=== PATIENT | female | born 1950 | race Caucasian/White ===

== ENCOUNTER 2022-06-13 11:48 | Outpatient (CLI) | payer MEDICARE, BC, SELFPAY ==
[2022-06-13 16:11] LABS: Albumin* 4.2 g/dL (3.3-5.0); Chloride* 103 mmol/L (96-114); Potassium* 4.7 mmol/L (3.6-5.1); Sodium* 136 mmol/L (135-149)
[2022-06-13 16:13] LABS: Carbon Dioxide* 27 mmol/L (20-32); Cholesterol* 193 mg/dL (90-199); Creatinine* 0.6 mg/dL (0.5-1.5); Estimated Glomerular Filt Rate 96 ml/min
[2022-06-13 16:14] LABS: Alanine Aminotransferase* 47 U/L (4-35); Alkaline Phosphatase* 100 U/L (40-150); Aspartate Amino Transferase* 62 U/L (12-35); Bilirubin Total* 0.6 mg/dL (0.1-1.5); Blood Urea Nitrogen* 13 mg/dL (7-30); Calcium* 9.2 mg/dL (8.4-10.6); Glucose* 83 mg/dL (60-115); Total Protein* 7.1 g/dL (6.0-8.3); Triglycerides* 51 mg/dL (40-149)
[2022-06-13 16:15] LABS: HDL Cholesterol* 68 mg/dL (>=50); LDL Cholesterol Calculated 115 mg/dL (<100)
== END 2022-06-13 11:49 | disposition home or self-care (01) ==
PROVIDERS: PCP Nurse Practitioner Family; Visit Provider Nurse Practitioner Family
DX: B35.1 Tinea unguium (principal); Z13.6 Encounter for screening for cardiovascular disorders
CPT/HCPCS: 80053; 80061

== ENCOUNTER 2022-06-19 14:58 | Outpatient (CLI) | payer MEDICARE, SELFPAY ==
--- OUTSIDE RECORDS SUMMARY | 2022-05-17 09:59 | XMS_ITS | Continuity of Care Document ---
:1950 Author Care Team Providers Name Role Phone RUSTY Smiley Primary Care Physician [email or web address] MD Tree Attending Physician Chief Complaint and Reason for Visit Chief Complaint SWOLLEN TONGUE Allergies, Adverse Reactions, Alerts Allergen Type Severity Reaction Last Verified Status Updated Penicillin v Allergy Mild Rash April 25, Yes Active 2021 Pneumococcal Allergy Mild Swollen Arm April 25, Yes Activ e Vaccines 2021 SEASONAL Allergy Mild STUFFY NOSE March 15, No Active 2004 Social History Smoking Status Status Start Date End Date Date of Observat ion Never smoked tobacco April 25 5:22pm (finding) Additional Data Assigned Sex Female Problems Active Problems Medical Problem Onset Date Status Osteopenia October, Active History of polymyalgia rheumatica 2009 Resolv ed History of colon polyps 2010 Resolved Lyme arthritis Active Encounter for screening for Active COVID-19 History of bilateral cataract 2016 Resolved extraction Inactive/Resolved Problems Medical Problem Onset Date Status 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, 2012 Resolved Medications Medication Status Dose Units Route Directions Qty Days Start End Ins tructions Date Date Calcium/Vitam Active 1 EA PO Daily in D Cholecalcifer Active 5000 UNIT PO Daily 100 ol (Vitamin D) 5,000 Unit TAB Loratadine Active 10 MG PO Daily as 100 needed Terbinafine Active 250 MG PO Daily 84 April 11:49am Acetaminophen Disconti 1 TAB PO Q4h Prn February /Hydrocodone nued , , Bitart 2004 2006 (Vicodin Es 11:27am 1:26pm 750/7.5 Mg) 1 Ea TAB Acyclovir Disconti 400 MG PO Twice A Day Juneuar (Zovirax) 400 nued , y Mg TAB 2012 08, 4:46pm 2013 4:19pm Alendronate Disconti 70 MG PO Every 7 12 April Sodium nued Days , 2021 9:29am 3:34pm Alendronate Disconti 70 MG PO Every 7 January Sodium nued Days , 2021 10:56am 9:29am Alendronate Disconti 70 MG PO Every 7 January Sodium nued Days r , 2020 9:17am 10:56a m Alendronate Disconti 70 MG PO Every 7 12 August Sodium nued Days 4th, er 2020, 1:05pm 2020 9:17am Alendronate Disconti 70 MG PO Every 7 04 June Octobe Sodium nued Days 28th, r 2019 11:20am 1:05pm Alendronate Disconti 70 MG PO Every 7 March Sodium nued Days , 2018 3:36pm 11:20a m Alendronate Disconti 70 MG PO Every 7 February Sodium nued Days , 2018 5:45pm 3:36pm Alendronate Disconti 70 MG PO Once Weekly 25 January Sodium nued , (Fosamax) 70 2012 Mg TAB 7:59am Alendronate Disconti 70 MG PO Once Weekly Januaryu a Sodium nued , ry (Fosamax) 70 2011, Mg TAB 11:54am 2012 10:08a m Alendronate Disconti 70 MG PO Once Weekly Jan Patient due Sodium nued r , , for follow up (Fosamax) 2010 apt in Mg TAB 1:17pm 11:54a December m 2010. Alendronate Disconti 70 MG PO Once Weekly November Patient due Sodium nued , er for follow up (Fosamax) 70 2010, apt in Mg TAB 4:pm 2010 1:17pm 2010. Alendronate Disconti 70 MG PO Once Weekly Nov uar Sodium nued r 10th, y (Fosamax) 70 2009 09, Mg TAB 9:17am 2010 4:18pm Alendronate Disconti 70 MG PO Once Weekly August Sodium nued , er (Fosamax) 70 2008 08, Mg TAB 12:35pm 2008 9:17am Alendronate Disconti 70 mg PO Weekly 12 Octobe Sodium nued er r (Fosamax) 10 , , Mg TAB 2007 2007 12:33pm 12:35p m Alendronate Disconti 70 mg PO Weekly 5 Septem Sodium nued er jose (Fosamax) 10 , , Mg TAB 2006 2007 12:51pm 11:21a m Alendronate Disconti Septem Sodium nued jose (Fosamax) 10 , Mg TAB 2006 12:51p m Amoxicillin Disconti 500 MG PO Three Times February nued A Day , , 2004 2006 11:27am 1:26pm Aspirin Disconti 81 MG PO Daily Novemb nued er 2017 1:00pm Azithromycin Disconti 250-5 MG PO Daily April 500 mg x 1 nued 00 , day then 250 2014 2016 mg daily x 4 2:40pm 1:08pm days Azithromycin Disconti 0 PO Daily March DANIEL E 2 TABLETS TOGETHER TODAY, THEN 1 TABLET ONCE DAILY FOR 4 MORE (Zithromax) nued , jose DAYS 250 Mg TAB 2014 01, 10:47am 2013 8:09am Betamethasone Disconti 1 JL TOP Twice A Day mbe D ecemb /Clotrimazole nued r , er (Lotrisone) 2015 11, CRE 5:04pm 2019 2:46pm Cephalexin Disconti 250 MG PO Three Times April Monohydrate nued A Day , jose (Keflex) 250 2006, Mg CAP 11:54am 2006 8:40am Cetirizine Disconti 10 MG PO Daily Novemberua Hcl (Zyrtec) nued , ry 10 Mg TAB 2012, 11:03am 2012 8:59am Ciprofloxacin Disconti 1 TABLET PO Twice A Day Take for 1-3 Hcl nued er ry days for , , infectious 2016 2018 diarrhea. 6:09pm 1:26pm Ciprofloxacin Disconti 500 MG PO Twice A Day March e Take 2x/day for up to 3 days for moderate to severe Hcl (Cipro) nued , , diarrhea . 500 Mg TAB 2014 2014 12:35pm 2:14pm Coenzyme Q10 Disconti 100 MG OR Daily (Ubidecarenon nued er e) (Co Q 10) , 100 Mg CAP 2015 10:42a m Cyclobenzapri Disconti 1 TABLET PO Three Times 22 June No vemb PRN MUSCLE ne Hcl nued A Day , er SPASM (Flexeril) 2009, Mg TAB 3:36pm 2009 1:30pm Diphtheria/Te Disconti 0.5 ML IM Once tanus/Acell nued r , er Pertussis 2009 08, (Adacel) 0.5 1:50pm 2008 Ml INJ 1:51pm Doxycycline Disconti 100 MG PO Daily Februa Be gin two days before your trip, during the trip, and (Monohydrate) nued er ry contin ue for 4 weeks after returning home. , 2016 6:09pm 1:26pm Doxycycline Disconti 100 MG PO Twice A Day 56 Decembe Feb il Monohydrate nued r , 2019 3:31pm 12:58p m Doxycycline Disconti 100 MG PO Daily August Ta ke one pill at the same time daily. Start 2 days before Monohydrate nued , er travel a nd continue for 4 weeks after returning. 2018 11, 12:18pm 2019 2:46pm Fish Oil Disconti 1000 MG PO Daily February nu2020 12:58p m Fluticasone Disconti 2 PUFF NA Daily February Propionate nued , , (Flonase) 50 2004 2006 Mcg/1 [place] 11:27am 1:26pm ALEJA Guaifenesin/C Disconti 1-2 TSP PO Every 6 240 Februar Novem b As needed for odeine nued Hours as y , er cough, Phosphate needed 2017, caution (Guaifenesin- 2:05pm 2017 sedat ing Codeine) 100 1:00pm Mg/10 Mg/5 Ml SOLN Guaifenesin/C Disconti 1-2 TSP PO Every 6 240 Februar Febru a As needed for odeine nued Hours as y , ry cough, Phosphate needed 2017, caution (Guaifenesin- 2:02pm 2018 sedat ing Codeine) 100 2:05pm Mg/10 Mg/5 Ml SOLN Hepatitis A Disconti 1 ML IM Once 1 March Vaccine nued 1st, 1st, (Havrix) 2017 2017 1,440 Elu/Ml 9:31am 9:43am INJ Hepatitis A Disconti 1 ML IM Once 1 Augustobe Vaccine nued 2nd, r 2nd, (Havrix) 2016 2016 1,440 Elu/Ml 8:32am 8:55am INJ Ibuprofen Disconti 800 MG PO Tid Prn Mayb nued , er 2009, 3:36pm 2009 1:30pm Loratadine Disconti 10 MG OR Daily January (Claritin) 10 nued , , Mg CAP 2012 2012 8:49am 7:59am Measles/Mumps Disconti 1 EA SUBQ Once Augustobe /Rubella nued 2nd, r 2nd, Vaccine Live 2016 2016 (Mmr) 1 Ea 8:32am 8:55am VIAL Metronidazole Disconti 1 EACH TOP Twice A Day 45 Novembe S eptem THIN FILM TO (Metronidazol nued r AFFE CTED AREA e Gel) 0.75 % 2010, AFTER WASHING GEL 3:07pm 2011 11:32a m Pneumococcal Disconti 0.5 ML IM Once [facility] Polyvalent nued r , er Vaccine 2016 03, (Pneumovax-23 11:42am 2016 Multidose 11:49a Vial) 23 m Mcg/0.5 Ml INJ Pneumococcal Disconti 0.5 ML IM Once January Polyvalent nued , 10th, Vaccine 2016 2015 (Prevnar 13) 1:42pm 2:58pm 0.5 Ml INJ Poliovirus Disconti 0.5 ML SUBQ Once Augustobe Vaccine nued 2nd, r 2nd, Inactivated 2016 2016 (Ipol 8:32am 8:57am Inactivated Ipv) INJ Prednisone Disconti 2 TABLET PO Daily March nued , jose 2013 3rd, 10:47am 2013 8:09am Prednisone Disconti 2 MG PO Daily January nued 2013 2:37pm Prednisone Disconti 1 MG PO Daily 30 Januaryed 2013 2:37pm Prednisone Disconti 10 MG PO Daily 5 January nued 2012 8:49am 7:59am Prednisone Disconti 2 MG PO Daily 60 January 8:49am Prednisone Disconti 3 MG PO Daily 270 Septemb Februa nued er ry 2011 12:13pm 8:59am Prednisone Disconti 1 - 4 MG PO Daily 100 January Septem nued , jose 2011, 11:50am 2011 12:13p m Prednisone Disconti 5 MG PO Daily 90 Novembe Julem nued r , 2010, 4:20pm 2011 11:32a m Prednisone Disconti 1 - 4 MG PO Daily 100 Novembe January nued r 2010 4:20pm 11:50a m Prednisone Disconti 5 MG PO Daily 90 May Novemb nued , er 2010, 12:21pm 2010 4:20pm Prednisone Disconti 1 - 4 MG PO Daily 100 May Novemb nued 14, er 2010, 12:23pm 2010 4:20pm Prednisone Disconti 1 - 4 MG PO Daily 100 January nued 2010 10:47am 12:23p m Prednisone Disconti 5 MG PO Daily 30 April nued 2010 9:24am 12:21p m Prednisone Disconti 20 MG PO Daily June nued 2009 3:06pm 8:34am Prednisone Disconti 15 - MG PO Daily 60 Novembe April nued 20 r 2009 1:59pm 8:34am Prednisone Disconti 1 - 4 MG PO Daily 120 Novembe January nued r 2009 1:59pm 10:47a m Prednisone Disconti 15 - MG PO Daily 60 Septemb Novemb nued 20 er er 2009 10:10am 1:59pm Prednisone Disconti 1 - 4 MG PO Daily 120 Septemb Novemb nued er er 2009 10:10am 1:59pm Promethazine Disconti 5 ML PO Every 6 120 Sept W/Codeine nued Hours as er er (Phenergan W/ needed , , Codeine) 6.25 2010 2010 Mg/10 Mg SYRP 10:21am 3:53pm Ranitidine Disconti 1 [address] OR Twice A Day 31 January Januar Hcl (Zantac nued , y 150 Maximum 2013 08, Streng) Max 8:49am 2014 St TAB 4:19pm Typhoid Vi Disconti 0.5 ML IM Once Augustobe Polysaccharid nued , r 2nd, e Vacc 2016 2016 (Typhim Vi) 8:32am 8:55am 25 Mcg/0.5 Ml INJ Zostavax Disconti 0.65 ML SUBQ Once nued er jose , 2011 12:17pm 2:32pm Immunizations Immunization Event Date Not Given Dose Medical Social Consultant Lot Vac cine Reason Number Number Informatio n Statement (VIS) Deta il COVID-19 Moderna December 252020 COVID-19 Moderna February 022020 Herpes Zoster July 25 Merck [id number] 2011 Influenza July 252011 Influenza September 07, 2 2012 Influenza July 27, 2013 Influenza September 11, 4 2015 Influenza August 25, 5 2016 Influenza September 14, 2017 Influenza July 312018 Influenza August 012019 Prevnar Adult January 31, WYETH [id number] 2016 Pneumovax Adult October 28 MERCK [id number] 2015 Shingrix November 012017 Shingrix March 25, 2019 2 Tdap September 24 sanofi pasteur [id number] (adolescent/adul 2008 t) Tdap July 26 [id number] (adolescent/adul 2011 t) Procedures Procedure Date Performed Status Future Lab Clinic April 26, 2022 completed Colonoscopy Surveillance May 09, 2022 completed Relevant Diagnostic Tests and/or Laboratory Data Laboratory Results Test Date/Time Result Interpretation Reference Result Perfo rming Site Range Comment Coronavirus May 08, NEGATIVE NEGATIVE The 2019 [facility] (COVID-19)(P 2021 SARS-CoV- novel [address] CR) 9:07am [address] [place] [facility] [place] [address] (SARS-CoV-2) target nucleic acids are not detected by RT-PCR. This result does not rule out SARS-CoV-2 in the patient, as the sensitivity of the test depends on timing of the specimen collection and quality of the specimen. Results should be correlated with the patient's history and clinical presentation . Pathology May 09, SEE REF [facility] Lab Specimen [address] [facility] Result 12:10pm [facility] [address] Vital Signs Vital Reading Result Reference Range Collection Date/ Time Height 64.330 [in_i] April 25, 2022 1 0:45am Height 163.4 cm April 25, 2022 1 0:45am Weight 129.00 [lb_av] April 25, 2022 1 0:45am Weight 58.987654 kg April 25, 2022 1 0:45am Body Temperature 98.6 [degF] April 25, 2022 10:45am Body Temperature 37 Winsome April 25, 2022 10:45am BP Systolic 115 mm[Hg] April 25, 2022 1 0:45am BP Diastolic 73 mm[Hg] April 25, 2022 1 0:45am Heart Rate 56 /min April 25, 2022 1 0:45am Respiratory rate 16 /min April 25, 2022 10:45am Body surface area 1.63 m2 April 25, 2022 10:45am BMI (Body Mass Index) 22.0 kg/m2 April 25, 2022 10:45am Advance Directives Advance Directive Response Recorded Date/Time Does Pt have Health Care Yes January 31 7:01pm Directive? Has patient completed a Yes April 25, 2022 5 :22pm Health Care Directive? Insurance Providers Guarantor Binta Dawson Address [address] [facility] [address] Contact Info. Home Phone: Payer Policy Id Coverage Id Subscriber's Subscriber Id Effective E xpiration Name Date Date [employer] [id number] Binta Dawson November 24 [id number] Encounters Encounter Location(s) Arrival/Admit Discharge/Depart Provider(s ) Date Date Registered [place] May 09, 2022 [facility] 10:45am Brian DO Registered [place] May 08, [address] 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 Annual exam--future order placed for fasting labs including a lipid panel and CMP. Screening mammogram and colonoscopy ordered as well. Patient will be due for a bone scan next year. Advised to continue staying active as able, continue with her healthy diet both of primarily fruits and vegetables. Did discuss the importance of stress management. 2. Onychomycosis-- will treat with terbinafine once daily for 84 days. Follow-up as needed. Plan of Treatment Instructions from visit on: 04/25/22 Please follow the provider's instructions as discussed during your visit. Future Tests Future scheduled test information is unavailable Pending Tests Pending diagnostic test information is unavailable Future Visits Future appointment information is unavailable Referrals to Other Providers Reason for Referral Referral Start Provider Provider Contact Pr ovider Date Information Address Patient prefers to schedule own appointment after viewing he r schedule. [facility] Contact number shared, insurance verified, eld, [facility] e[facility] Order faxed to [phone]. Clinic is open Friday and , patient to [facility] Work Phone: call [phone] to schedule own appt. Insurance verified. Mukesh DPM Patient prefers to schedule own appointment after viewing he r schedule. [facility] Contact number shared, insurance verified, eld, [facility] R ehab Order faxed to [phone]. Clinic is open Friday and , patient to [facility] Work Phone: call [phone] to schedule own appt. Insurance verified. Mukesh DPM Future Procedures Procedure Name Scheduled Date RYAN Bilat Mammo Scrn Future Medications Future medication information is unavailable Patient Instructions Laceration Repair -- Finger Goals Ambulatory Goals Reach or maintain optimal well being.
--- NOTE | 2022-06-19 15:20 | CRLHL7_ITS ---
For Patients: As a result of the Century Cures Act, medical imaging exams and procedure reports are released immediately into your electronic medical record. You may view this report before your referring provider. If you have questions, please contact your health care provider. BILATERAL MAMMOGRAM WITH COMPUTER-AIDED DETECTION TECHNIQUE: CC and MLO views were obtained. These mammographic images have been obtained using full-field digital technique. These mammographic images were interpreted with the benefit of computer-aided detection. COMPARISON FILM: 03/27/21, 03/04/19, 02/18/18. FINDINGS: The breasts are heterogeneously dense, which may obscure small masses. IMPRESSION: There is no radiographic evidence for malignancy. ASSESSMENT: BI-RADS Category 1: Negative RECOMMENDATION: Routine screening mammogram in 1 year. A lay language report of this examination will be provided to the patient. RADHA FRENCH M.D. Diagnostic/Nuclear Medicine Radiologist [email or web address] Transcribed: 4:[address]/Dictated by: Radha French MD @ 06/20/2022 9:04:00 AM (Electronically Signed)
== END 2022-06-19 14:59 | disposition home or self-care (01) ==
LOC: MAMMO 15:00
PROVIDERS: PCP Nurse Practitioner Family; Visit Provider Nurse Practitioner Family
DX: Z12.31 Encounter for screening mammogram for malignant neoplasm of breast (principal); R92.2 Inconclusive mammogram
CPT/HCPCS: 77063; 77067